=== PATIENT | male | born 1970 | race Caucasian/White ===

== ENCOUNTER 2023-02-21 22:38 | Emergency (ER) | payer OTHER, SELFPAY ==
--- NOTE | ~2023-02-21 | XR_ITS ---
Right foot Technique: AP, oblique, and lateral views were obtained. Clinical History: Injury Findings: No acute fracture or dislocation is seen. Osseous alignment is anatomic. Joint spaces are p reserved without erosive or degenerative change. Soft tissues are unremarkable. Impression: Unremarkable right foot radiographs. Reviewed, dictated and finalized at location . Impression: Unremarkable right foot radiographs.
[2023-02-21 22:40] VITALS: BP 148/77; PULSE 69; RESP 17; TEMP 36.4; O2SAT 98
--- NOTE | 2023-02-21 23:55 | ED.GENADULT ---
HPI - General Adult General Chief complaint: Extremity Injury, Lower <JOEL De Paz Last Filed: 02/22/23 02:48> Stated complaint: DM neuropathy, right foot injury <JOEL De Paz Last Filed: 02/22/23 02:48> Time Seen by Provider: 02/21/23 23:03 <Efrain Soriano PA-C - Last Filed: 02/22/23 02:48> Source: patient <JOEL De Paz Last Filed: 02/22/23 02:48> Mode of arrival: ambulatory <JOEL De Paz Last Filed: 02/22/23 02:48> Limitations: no limitations <JOEL De Paz Last Filed: 02/22/23 02:48> History of Present Illness HPI narrative: This is a 52-year-old male with PMH of diabetes, peripheral neuropathy who presents to the ED with chief complaint of a right great toe injury occurring earlier this afternoon. Patient states that his son's dog was staying at the house and he was trying to break up potential fight between their 2 dogs. States he turned to run away from the dog and subsequently hurt his right great toe. He is unsure exactly what happened but feels that he may have stubbed it on something. Reports bruising and tenderness. Denies any further site of pain or injury. <Efrain Soriano PA-C - Last Filed: 02/22/23 02:48> Related Data Home medications: Home Medications Medication Instructions Recorded Confirmed fluticasone propionate 50 1 spray intranasal DAILY 07/24/19 02/19/23 mcg/actuation nasal spray,suspension (Flonase Allergy Relief) loratadine 5 mg/5 mL oral solution 5 ml PO ONCE 07/24/19 02/19/23 (Claritin) atorvastatin 40 mg tablet 40 mg PO DAILY 07/26/19 02/19/23 bupropion HCl 300 mg 24 hr tablet, 300 mg PO QAM 07/26/19 02/19/23 extended release (Wellbutrin XL) omega-3 fatty acids 1,000 mg 1,000 mg PO DAILY 07/26/19 02/19/23 capsule (Fish Oil Concentrate) acetylcarnitine 500 mg capsule 500 mg PO DAILY 07/26/20 02/19/23 acetylcysteine (bulk) ea miscellaneous 07/26/20 02/19/23 cholecalciferol (vitamin D3) 250 250 mcg PO WEEKLY 07/26/20 02/19/23 mcg (10,000 unit) capsule lutein 20 mg capsule 20 mg PO DAILY 07/26/20 02/19/23 magnesium 250 mg tablet 250 mg PO DAILY 07/26/20 02/19/23 phytonadione (vitamin K1) 100 mcg 100 mcg PO DAILY 07/26/20 02/19/23 tablet vitamin A palmitate 3,000 mcg 10,000 unit PO DAILY 07/26/20 02/19/23 (10,000 unit) tablet dulaglutide 0.75 mg/0.5 mL 1.5 mg subcut WEEKLY 02/17/22 02/19/23 subcutaneous pen injector (Trulicity) lisinopril 10 mg tablet 20 mg PO DAILY 02/17/22 02/19/23 <Efrain Soriano PA-C - Last Filed: 02/22/23 02:48> Allergies/adverse reactions: Allergies Allergy/AdvReac Type Severity Reaction Status Date / Time No Known Allergies Allergy Verified 02/21/23 22:46 <Efrain Soriano PA-C - Last Filed: 02/22/23 02:48> Review of Systems Review of Systems: CONSTITUTIONAL: Denies fever, chills, or sweats. EYES: Denies visual changes, redness, or discharge. ENT: Denies rhinorrhea, congestion, sore throat, or otalgia. CARDIOVASCULAR: Denies chest pain, palpitations, or edema. RESPIRATORY: Denies cough or dyspnea. GASTROINTESTINAL: Denies abdominal pain, nausea, vomiting, or diarrhea. GENITOURINARY: Denies dysuria or hematuria. SKIN: See HPI MUSCULOSKELETAL: See HPI NEUROLOGIC: Denies headache, numbness, dizziness, or weakness. PSYCHIATRIC: Denies anxiety or depression. <Efrain Soriano PA-C - Last Filed: 02/22/23 02:48> PMFSH Past Medical History Medical History: Medical History Allergic rhinitis Depression Diabetes Diabetes type 2, controlled Dyslipidemia <Efrain Soriano PA-C - Last Filed: 02/22/23 02:48> Family History Family History: Family History Sibling Family history of thyroid disease Asthma <Efrain Sorinao PA-C - Last Filed: 02/22/23 02:48> Social History Social History: Social History (Reviewed
[2023-02-22] MEDS: HYDROcodone/acetaminophen (*CRX) 7.5-325 MG TABLET 1 TAB PO (00:24)
[2023-02-22 03:06] VITALS: PULSE 66; RESP 16; O2SAT 100
== END 2023-02-22 03:07 | disposition home or self-care (01) ==
PROVIDERS: Emergency Provider Physician Assistant
DX: M79.674 Pain in right toe(s) (principal); F32.A Depression, unspecified; E11.9 Type 2 diabetes mellitus without complications; E78.5 Hyperlipidemia, unspecified
CPT/HCPCS: 73630; 99283; A9270

== ENCOUNTER 2023-12-03 09:23 | Outpatient (CLI) | payer OTHER, SELFPAY ==
[2023-12-13 23:09] VITALS: BMI 37.2
--- NOTE | 2023-12-13 23:09 | WPDSLEEPSTUD ---
Sleep Study Date of Study: 12/03/23 Ordering Provider: Ila Gonzalez MD Interpreting Physician: Ila Gonzalez MD Sleep Study Type: CPAP Titration Height: 1.73 m Weight: 111.13 kg Body Mass Index: 37.2 Neck Circumference (inches): 17.5 [place]: 19 Reason for Sleep Study Hypersomnolence; known obstructive sleep apnea, compliant with treatment with residual hypersomnolence, elevated [place] despite modafinil and management of restless legs syndrome with ropinirole Sleep History Chito Gee is a 53-year-old man with known obstructive sleep apnea, always tired even when using CPAP consistently. He always has residual daytime sleepiness even with use of modafinil 400 mg total daily. He has restless legs syndrome, takes ropinirole 4 mg daily. He rarely awakens from sleep feeling short of breath. He rarely wakes at night with heartburn, belching or coughing.??He frequently snores, and it is frequently loud enough that others complain. He occasionally has trouble sleeping when he has a cold. He rarely wakes up gasping for breath during the night. He constantly has breathing problems at night. He rarely sweats excessively at night. He never notices his heart pounding or beating irregularly during the night. He constantly falls asleep during the day. He constantly falls asleep involuntarily, and frequently falls asleep while driving. He never experiences loss of muscle tone with strong emotion. He frequently has daytime difficulty at work due to excessive sleepiness. He rarely feels paralyzed on waking or falling asleep. He never experiences vivid dreams upon waking or falling asleep. He never feels afraid of going to sleep. He never has nightmares. He rarely recalls his dreams. He occasionally has thoughts racing through his mind. He rarely feels sad or depressed. He rarely feels anxiety. He frequently notices parts of his body jerk. He frequently kicks during the night. He rarely feels crawling or aching feelings in his legs. He never feels leg pain at night. He never has morning jaw pain, occasionally grinds his teeth at night. He rarely feels bothered by pain during the day, rarely awakened by pain during the night. He rarely wakes up feeling stiff in the morning, and he rarely wakes feeling sore or achy. He never awakens with pain in his neck, spine, or joints. Normal bedtime is between 11:00 p.m. and 1:00 a.m., falling asleep within 10-15 minutes, not waking at all most nights. If he does awaken, it is to go to the bathroom. He is able to return to sleep within 10-15 minutes. His normal wake time is between 6:00 a.m. and 7:00 a.m.. He keeps the same schedule on weekends. He estimates getting between 6 and 8 hours of sleep at night. He takes naps in the day, and a short nap lasting 10-15 minutes may be refreshing. He feels better in the evening compared to other times of day. Habits:??Tobacco: Never smoker Caffeine: 1-2 glasses of tea per day. Alcohol: 1 drink per week Recreational substances: none PMFSH Past Medical History Medical History (Updated 12/13/23 @ 23:21 by Ila Gonzalez MD) Allergic rhinitis Depression Diabetes Diabetes type 2, controlled Dyslipidemia Hypertension Obstructive sleep apnea Restless legs syndrome Family History Family History Sibling Family history of thyroid disease Asthma Social History Social History Smoking status: Never smoker Medications Home Medications Medication Instructions Recorded Confirmed Type fluticasone propionate 50 1 spray intranasal DAILY 07/24/19 11/09/23 History mcg/actuation nasal spray,suspension (Flonase Allergy Relief) loratadine 5 mg/5 mL oral solution 5 ml PO ONCE 07/24/19 11/09/23 History (Claritin) atorvastatin 40 mg tablet 40 mg PO DAILY 07/26/19 11/09/23 History bupropion HCl 300 mg 24 hr tablet, 300
== END 2023-12-04 06:43 | disposition home or self-care (01) ==
LOC: ANHCSM 09:24
PROVIDERS: Visit Provider Internal Medicine Critical Care Medicine
DX: G47.33 Obstructive sleep apnea (adult) (pediatric) (principal); G25.81 Restless legs syndrome
CPT/HCPCS: 95811

== ENCOUNTER 2024-02-29 21:55 | Emergency (ER) | payer OTHER, SELFPAY ==
[2024-02-29 21:56] VITALS: BP 108/88; PULSE 68; RESP 16; TEMP 36.7; O2SAT 98
--- NOTE | 2024-02-29 22:01 | PC.NURSE ---
Pt verbalized I actually dont think i am going to stay. I think the cuts just fine. I am going to go home.
== END 2024-02-29 22:52 | disposition left against medical advice (07) ==
LOC: ANHED 22:33
DX: S61.210A Laceration without foreign body of right index finger without damage to nail, initial encounter (principal)
CPT/HCPCS: 99199